=== PATIENT | male | born 1960 | race Caucasian/White ===

== ENCOUNTER 2017-08-11 03:23 | Emergency (ER) | payer BC ==
[2017-08-11 03:37] VITALS: BP 120/79; PULSE 51; BMI 24.4
[2017-08-11] MEDS ORDERED: ASPIRIN 81 MG CHEWABLE TABLETS PO ONE (03:38)
--- NOTE | 2017-08-11 03:47 | PDOC ---
History of Present Illness - General Chief Complaint: Chest Pain Stated Complaint: PAIN Time Seen by Provider: 08/11/17 03:30 History Source: Patient - History of Present Illness Initial Comments: 08/11/17 03:40 56 year old male with right/ midsternal chest pain one hours prior to arrival. patient denies nausea, diaphoresis, SOB, pleurisy, vomiting, abdominal pain. + recent travel to [place] No pmhx Presenting Symptoms: Chest Pain Timing/Duration: reports: gone now Severity/Quality: reports: mild Location: reports: substernal Chest Pain Radiation: reports: no radiation Activities at Onset: reports: none Prior Chest Pain/Cardiac Workup: reports: No prior chest pain Aspirin Received prior to arrival (Core Measure): Yes: 81 mg x 1 Past History - Past Medical History Allergies/Adverse Reactions: Allergies Allergy/AdvReac Type Severity Reaction Status Date / Time No Known Allergies Allergy Verified 08/11/17 03:35 Home Medications: Ambulatory Orders NK [No Known Home Medication] 08/11/17 - Suicide/Smoking/Psychosocial Hx Smoking History: Never smoked Have you smoked in the past 12 months: No Information on smoking cessation initiated: No Hx Alcohol Use: No Drug/Substance Use Hx: No Review of Systems - Review of Systems Able to Perform ROS?: Yes Is the patient limited [place] proficient: No Cardiac (ROS): Yes: Chest Pain. No: Symptoms Reported, See HPI, Edema, Irregular Heart Rate, Lightheadedness, Palpitations, Syncope, Chest Tightness, Other *Physical Exam - Vital Signs Last Vital Signs Temp Pulse Resp BP Pulse Ox 51 L 14 120/79 100 08/11/17 03:33 08/11/17 03:33 08/11/17 03:33 08/11/17 03:33 - Physical Exam General Appearance: Yes: Appropriately Dressed Respiratory/Chest: positive: Lungs Clear, Normal Breath Sounds Cardiovascular: positive: Regular Rate, S1, S2, Bradycardia. negative: Edema Gastrointestinal/Abdominal: positive: Normal Bowel Sounds, Soft Integumentary: positive: Normal Color, Dry, Warm Neurologic: positive: Fully Oriented, Alert, Normal Mood/Affect Heart Score/ECG Review - History History: Slightly suspicious - Electrocardiogram EKG: Non specific repolarization disturbance - Age Age: 45-65 - Risk Factors Based on the list above the patient has:: No risk factors known - Troponin Troponin: </= normal limit - Score Heart Score - Total: 2 - ECG Intrepretation Rhythm: Regular Rhythm Comment:: 08/11/17 03:48 sinus bradycardia with PACs, septal infarct ED Treatment Course - LABORATORY CBC & Chemistry Diagram: 08/11/17 04:35 08/11/17 04:35 - ADDITIONAL ORDERS Additional order review: Laboratory Results 08/11/17 08/11/17 04:35 04:35 PT with INR 11.90 H INR 1.08 D-Dimer < 200 Sodium 142 Potassium 4.6 Chloride 106 Carbon Dioxide 29 Anion Gap 7 L BUN 23 H Creatinine 1.1 Creat Clearance w eGFR > 60 Random Glucose 91 Calcium 8.7 Magnesium 1.9 Total Bilirubin 0.6 AST 23 ALT 33 Alkaline Phosphatase 84 Creatine Kinase 140 Troponin I < 0.02 Total Protein 6.7 Albumin 3.6 08/11/17 04:35 RBC 4.93 MCV 87.3 MCHC 34.2 RDW 12.7 MPV 8.5 Neutrophils % 65.2 Lymphocytes % 27.0 Monocytes % 5.3 Eosinophils % 1.7 Basophils % 0.8 - RADIOLOGY Radiology Studies Ordered: Category Date Time Status CHEST PA & LAT [RAD] Stat Radiology 08/11/17 03:38 Taken - Medications Given in the ED: ED Medications Discontinued Medications Generic Name Dose Route Start Last Admin Trade Name Carlos PRN Reason Stop Dose Admin Aspirin 162 mg 08/11/17 03:38 08/11/17 04:30 Asa - PO 08/11/17 03:39 162 mg ONCE ONE Administration Progress Note - Progress Note Progress Note: A: chest pain P: EKG CHest xray cbc cmp cardiac lab aspirin 161mg. d-dimer <200mg Medical Decision Making - Medical Decision Making 08/11/17 patient is asymptomatic. all result reviewed. will d/c home. *DC/Admit/Observation/Transfer Diagnosis at time of Disposition: Chest pain Qualifiers: Chest pain type: unspecified Qualified Code(s): R07.9 - Chest pain, unspecified - Discharge Dispostion Disposition: HOME - Referrals Referrals: Miguel Ayala MD [Primary Care Provider] - - Patient Instructions Printed Discharge Instructions: DI for Atypical Chest Pain Additional Instructions: follow up with your doctor as soon as possible. return to the ED if symptoms worsen. - Post Discharge Activity Forms/Work/School Notes: Back to Work
[2017-08-11] MEDS ORDERED: ASPIRIN 81 MG CHEWABLE TABLETS ONE (04:30)
[2017-08-11 04:54] LABS: BASOPHIL 0.8 % (0-2.0); EOSINOPHIL 1.7 % (0-4.5); MCH 29.9 pg (25.7-33.7); MCHC 34.2 g/dl (32.0-35.9); MEAN CELL VOLUME 87.3 fl (80-96); MEAN PLT VOLUME 8.5 fl (7.5-11.1); NEUTROPHILS 65.2 % (42.8-82.8); PLATELET COUNT 135 K/MM3 (134-434); RDW 12.7 % (11.9-15.9); WHITE BLOOD COUNT 5.1 K/mm3 (4.0-10.0)
[2017-08-11 05:27] LABS: INR 1.08 (0.82-1.09)
[2017-08-11 05:36] LABS: ALBUMIN 3.6 g/dl (3.4-5.0); ANION GAP 7 (8-16); CALCIUM 8.7 mg/dL (8.5-10.1); CO2 29 mmol/L (21-32); CREATININE 1.1 mg/dL (0.7-1.3); GLUCOSE,RANDOM 91 mg/dL (74-106); MAGNESIUM 1.9 mg/dL (1.8-2.4); SGOT/AST 23 U/L (15-37); SGPT/ALT 33 U/L (12-78)
[2017-08-11 05:40] LABS: ALK PHOS 84 U/L (45-117); BILIRUBIN,TOTAL 0.6 mg/dL (0.2-1.0); CPK 140 IU/L (39-308); TOT PROT 6.7 g/dl (6.4-8.2); TROPONIN I < 0.02 ng/ml (0.00-0.05)
[2017-08-11 06:06] LABS: D-DIMER < 200 ng/ml (<200-235)
--- NOTE | 2017-08-11 19:54 | EKG ---
Test Reason : Blood Pressure : / mmHG Vent. Rate : 056 BPM Atrial Rate : 056 BPM P-R Int : 178 ms QRS Dur : 088 ms QT Int : 408 ms P-R-T Axes : 052 -20 016 degrees QTc Int : 393 ms SINUS BRADYCARDIA WITH BASELINE ARTIFACT Q WAVE IN V2 COMPATIBLE WITH SEPTAL INFARCT , AGE UNDETERMINED ABNORMAL ECG SUGGEST FOLLOW UP TRACING Confirmed by KASSI BENTON MD ([id number]) on 08/11/2017 7:54:17 PM Referred By: Confirmed By:KASSI BENTON MD
== END 2017-08-11 06:29 | disposition home or self-care (01) ==
LOC: JER 03:23
DX: R07.9 Chest pain, unspecified (principal)
CPT/HCPCS: 71020-TC; 80053; 83735; 84484; 85379; 85610; 93005; 93010; 99284-25